=== PATIENT | female | born 1980 | race Caucasian/White ===

== ENCOUNTER → 2019-12-01 15:57 | Outpatient (CLI) | payer BC, SELFPAY ==
--- NOTE | ~2019-12-01 | MM_ITS ---
EXAMINATION: MM screening nichole BI w adi HISTORY: Screening mammogram TECHNIQUE: Craniocaudal and mediolateral oblique 3-D tomosynthesis images were obtained and synthetic 2-D images were generated. CAD analysis was submitted and interpreted. COMPARISON: No prior mammogram is available for comparison at this institution. BREAST PARENCHYMAL COMPOSITION: The breasts are heterogeneously dense, which may obscure small masses . FINDINGS: There is no evidence of suspicious mass, calcification, or architectural distortion to sugg est malignancy in either breast. IMPRESSION: 1. No mammographic evidence of malignancy. 2. Recommend routine screening mammography in one year. BI-RADS Category 1: Negative Reviewed, dictated and finalized at location A.
== END ==
PROVIDERS: PCP Family Medicine; Visit Provider Obstetrics & Gynecology
DX: Z12.31 Encounter for screening mammogram for malignant neoplasm of breast (principal)
CPT/HCPCS: 77063; 77067

== ENCOUNTER 2020-05-29 14:47 | Emergency (ER) | payer BC, SELFPAY ==
[2020-05-29 15:01] VITALS: BP 117/58; PULSE 68; RESP 12; TEMP 37.2; O2SAT 100
--- NOTE | 2020-05-29 15:06 | ED.WOUNDLAC ---
HPI - Wound/Laceration General Chief Complaint: Wound/Laceration Stated Complaint: DOG BITE TO UPPER R THIGH Time Seen by Provider: 05/29/20 15:06 Source: patient Mode of arrival: ambulatory Limitations: no limitations History of Present Illness HPI narrative: Nikki Humphries is a 39 yo female with a PMH of asthma who was bit and hour and a half ago when next door neighbors dog got out of yard (gate not latched). Large Dog bit patient in R upper leg. Is oozing. Has 2 puncture fowler on R upper lateral side of leg. Needs a tetanus booster. Related Data Home Medications Medication Instructions Recorded Confirmed albuterol sulfate 90 mcg/actuation 1 puff INHALATION Q4H PRN 01/21/19 aerosol inhaler fluticasone propion-salmeterol INHALATION 05/29/20 [Wixela Inhub] spironolactone 05/29/20 Allergies Allergy/AdvReac Type Severity Reaction Status Date / Time No Known Allergies Allergy Verified 05/29/20 14:53 Review of Systems Review of Systems: Narrative: CONSTITUTIONAL: Denies fever, chills, sweats. EYES: Denies visual changes, redness, discharge. ENT: Denies rhinorrhea, congestion, sore throat, otalgia. CARDIOVASCULAR: Denies chest pain, palpitations, edema. RESPIRATORY: Denies dyspnea, wheezing, cough GASTROINTESTINAL: Denies abdominal pain, nausea, vomiting, diarrhea. GENITOURINARY: Denies dysuria, hematuria, abnormal discharge SKIN: Denies rash or itching. Dog bite to right lateral thigh NEUROLOGIC: Denies numbness, or focal weakness. PSYCHIATRIC: Denies anxiety or depression. PMFSH Past Medical History Medical History (Updated 05/29/20 @ 15:24 by Kerry Garcia CNP) COVID-19 vaccine series completed No acute medical problems Family History Family History Other No acute medical problems Social History Social History Smoking status: Never smoker Alcohol intake: current Comments At time of signature, I agree with nursing past medical, surgical, social and family history. There is no relevant family history pertinent to the presenting complaint. Exam Narrative: Exam Narrative: GENERAL: This is a well-nourished, well-developed patient, in mild distress. HEAD: normocephalic, atraumatic. EYES: Sclera clear/white. Vision is grossly intact. EARS: External ears normal, Hearing grossly intact. NOSE: External nose normal without nasal discharge, nares without redness, no rhinorrhea. THROAT: Mucous membranes moist, NECK: Neck supple, CARDIOVASCULAR: Regular rate and rhythm without murmurs, gallops, or rubs. RESPIRATORY: Clear to auscultation. Breath sounds equal bilaterally. No wheezes, rales, or rhonchi. GASTROINTESTINAL: Abdomen soft, SKIN: warm, intact with no suspicious lesions or rash, good texture and turgor. Two 1/2 cm puncture fowler on right lateral upper thigh, oozing blood NEURO: awake, alert, and oriented to person, place and time. There were no obvious focal neurologic abnormalities. Steady gait EXTREMITIES: Normal range of motion. BACK: Nontender without deformity Course Course Emergency Course: [facility] right upper lateral thigh-2 puncture fowler, oozing blood, needs tetanus Given tetanus booster, wound cleansed with checked in care and dressed with 4 x 4's and pressure dressing. Hydrocodone for pain, augmentin for infection control Report filled out for state animal control by patient Follow-up with PCP Vital Signs Vital signs: Vital Signs Temperature 98.9 F 05/29/20 15:01 Pulse Rate 68 05/29/20 15:01 Respiratory Rate 12 05/29/20 15:01 Blood Pressure 117/58 L 05/29/20 15:01 Pulse Oximetry 100 05/29/20 15:01 Temperature 98.9 F 05/29/20 15:01 Pulse Rate 68 05/29/20 15:01 Respiratory Rate 12 05/29/20 15:01 Blood Pressure 117/58 L 05/29/20 15:01 Pulse Oximetry 100 05/29/20 15:01 [facility] -
[2020-05-29] MEDS: TETANUS,DIPHTHERIA,AC PERTUSSIS ADULT (0.5 ML) BOOSTRIX IM (15:12)
== END 2020-05-29 15:32 | disposition home or self-care (01) ==
PROVIDERS: Emergency Provider Nurse Practitioner; PCP Family Medicine
DX: S71.131A Puncture wound without foreign body, right thigh, initial encounter (principal); W54.0XXA Bitten by dog, initial encounter; Z23 Encounter for immunization; Z86.16 Personal history of COVID-19; J45.909 Unspecified asthma, uncomplicated
CPT/HCPCS: 90471; 90715; 99213; G0463

== ENCOUNTER → 2020-12-08 15:46 | Outpatient (CLI) | payer BC, SELFPAY ==
--- NOTE | ~2020-12-08 | MM_ITS ---
EXAMINATION: MM screening nichole BI w adi HISTORY: Screening mammogram TECHNIQUE: Craniocaudal and mediolateral oblique 3-D tomosynthesis images were obtained and synthetic 2-D images were generated. CAD analysis was submitted and interpreted. COMPARISON: 12/01/2019 BREAST PARENCHYMAL COMPOSITION: The breasts are heterogeneously dense, which may obscure small masses . FINDINGS: There is no evidence of suspicious mass, calcification, or architectural distortion to sugg est malignancy in either breast. There has been no suspicious interval change. IMPRESSION: 1. No mammographic evidence of malignancy. 2. Recommend routine screening mammography in one year. BI-RADS Category 1: Negative Reviewed, dictated and finalized at location A.
== END ==
PROVIDERS: PCP Family Medicine; Visit Provider Obstetrics & Gynecology
DX: Z12.31 Encounter for screening mammogram for malignant neoplasm of breast (principal)
CPT/HCPCS: 77063; 77067

== ENCOUNTER → 2020-12-08 15:48 | Outpatient (CLI) | payer BC, SELFPAY ==
--- NOTE | ~2020-12-08 | XR_ITS ---
EXAMINATION: XR knee LT min 4V DATE: 12/08/2020 16:49 INDICATION: Left knee pain. TECHNIQUE: 4 views of left knee were obtained. COMPARISON: None. FINDINGS: Bone alignment is normal. No fracture. Joint spaces are well maintained. There is no knee j oint effusion. IMPRESSION: 1. Normal left knee. Reviewed, dictated and finalized at location A. IMPRESSION: 1. Normal left knee.
--- NOTE | ~2020-12-08 | XR_ITS ---
EXAMINATION: XR knee RT min 4V DATE: 12/08/2020 16:50 INDICATION: Right knee pain. TECHNIQUE: 4 views of right knee were obtained. COMPARISON: None. FINDINGS: Bone alignment is normal. No fracture. Joint spaces are well maintained. There is no knee j oint effusion. IMPRESSION: 1. Normal right knee. Reviewed, dictated and finalized at location A. IMPRESSION: 1. Normal right knee.
== END ==
PROVIDERS: PCP Family Medicine; Visit Provider Family Medicine
DX: M25.562 Pain in left knee (principal)
CPT/HCPCS: 73564

== ENCOUNTER → 2021-06-17 15:23 | Outpatient (CLI) | payer BC, SELFPAY ==
--- NOTE | ~2021-06-17 | XR_ITS ---
XR lumbar spine 2-3V DATE: 06/17/2021 16:11 INDICATION: Low back pain TECHNIQUE: AP, lateral, coned lateral lumbosacral views COMPARISON: None FINDINGS: There is mild rotatory thoracolumbar dextroscoliosis. No fracture or dislocation or bone destruction. The lumbar pedicles are intact. There is severe degenerative disc disease at L5-S1. The sacroiliac joints are intact. IMPRESSION: Mild rotatory dextroscoliosis Severe degenerative disc disease at L5-S1 Reviewed, dictated and finalized at location A.
== END ==
PROVIDERS: PCP Family Medicine; Visit Provider Physician Assistant
DX: M54.50 Low back pain, unspecified (principal); M41.86 Other forms of scoliosis, lumbar region; M51.37 Other intervertebral disc degeneration, lumbosacral region
CPT/HCPCS: 72100

== ENCOUNTER 2022-01-28 08:17 | Outpatient (CLI) | payer BC, SELFPAY ==
--- NOTE | ~2022-01-28 | MM_ITS ---
EXAMINATION: MM screening nichole BI w adi HISTORY: Screening mammogram TECHNIQUE: Craniocaudal and mediolateral oblique 3-D tomosynthesis images were obtained and synthetic 2-D images were generated. Bilateral rotated lateral CC views. CAD analysis was submitted and interp reted. COMPARISON: 12/08/2020, 12/01/2019 bilateral screening mammogram examinations BREAST PARENCHYMAL COMPOSITION: The breasts are heterogeneously dense, which may obscure small masses . FINDINGS: There is no evidence of suspicious mass, calcification, or architectural distortion to sugg est malignancy in either breast. There has been no suspicious interval change. IMPRESSION: 1. No mammographic evidence of malignancy. 2. Recommend routine screening mammography in one year. BI-RADS Category 1: Negative Reviewed, dictated and finalized at location A. TIC YARN TWISTER
== END 2022-01-28 08:18 | disposition home or self-care (01) ==
PROVIDERS: PCP Family Medicine; Visit Provider Obstetrics & Gynecology
DX: Z12.31 Encounter for screening mammogram for malignant neoplasm of breast (principal)
CPT/HCPCS: 77063; 77067

== ENCOUNTER 2022-02-16 14:41 | Outpatient (CLI) | payer BC, SELFPAY ==
[2022-02-16 15:19] LABS: Strep Group A RT-PCR NOT DETECTED (Negative)
[2022-02-16 15:28] LABS: Influenza A QL RT-PCR Negative (Negative); Influenza B QL RT-PCR Negative (Negative); SARS-CoV-2 RNA PCR Positive
== END 2022-02-16 14:42 | disposition home or self-care (01) ==
LOC: ANHLAB 14:43
PROVIDERS: PCP Family Medicine; Visit Provider Family Medicine
DX: U07.1 COVID-19 (principal)
CPT/HCPCS: 87636; 87651

== ENCOUNTER 2022-06-11 09:41 | Emergency (ER) | payer BC, SELFPAY ==
--- NOTE | ~2022-06-11 | CT_ITS ---
EXAMINATION: CT pelvis w con DATE: 06/11/2022 12:32 INDICATION: Right perirectal abscess TECHNIQUE: Computed tomography (CT) of the pelvis was performed with 100 CC Omnipaque 350 intravenous contrast. Automated exposure control and iterative reconstruction technique were employed. Exam dose : 340.01 mGy-cm total exam DLP. COMPARISON: None FINDINGS: There is an approximately 1.3 cm wide 2.1 cm AP and 3.4 cm vertical abscess in the posterio r right perianal area, along the deep right gluteal fold. No bowel obstruction, bowel wall thickening or free air is evident. The appendix appears normal. No pelvic mass lesion or adenopathy is detected. 1.5 cm peripherally enhancing right ovarian corpus luteum cyst. There is mild to moderate free fluid in the posterior cul-de-sac, possibly physiologic. The uterus is retroverted. The urinary bladder is unremarkable. Small fat-containing umbilical hernia. Severe degenerative disc disease at L5-S1. Occasional sclerotic lesions of the iliac bones, sacrum and left femoral head are probably bone islan ds. Osteosclerotic metastases cannot be definitively excluded. Recommend clinical correlation and per haps radionuclide bone scan if clinically appropriate.. IMPRESSION: Right perianal/medial gluteal fold abscess Involuting 1.5 cm right ovarian cyst with mild to moderate free fluid in the pelvic cul-de-sac Normal appendix Scattered nonspecific osteosclerotic lesions, possibly bone islands. If there is concern for osteoscl erotic metastatic lesions, consider radionuclide bone scan Reviewed, dictated and finalized at Location A. Reviewed, dictated and finalized at location A. IMPRESSION: Right perianal/medial gluteal fold abscess Involuting 1.5 cm right ovarian cyst with mild to moderate free fluid in the pe lvic cul-de-sac Normal appendix Scattered nonspecific osteosclerotic lesions, possibly bone islands. If there i s concern for osteosclerotic metastatic lesions, consider radionuclide bone sca n
[2022-06-11 09:54] VITALS: BP 131/66; PULSE 88; RESP 20; TEMP 36.6; O2SAT 99
--- NOTE | 2022-06-11 10:04 | ED.GENADULT ---
HPI - General Adult General Chief complaint: Skin/Abscess/Foreign Body Stated complaint: tailbone cyst Time Seen by Provider: 06/11/22 09:53 Source: patient Mode of arrival: ambulatory Limitations: no limitations History of Present Illness HPI narrative: Patient is a 41 y/o female who presents to the ED with c/o rectal pain. Patient reports a history of a pilonidal cyst and abscess. She states she had the cyst removed several years ago at an outside hospital. She states she had issues with recurrence of inflammation along her right buttock frequently, worse with prolonged sitting. She notes that she last had a flare-up a few months ago. She visited her brother in [place], [place] last week and reported having increased pain, tenderness, redness to her R medial buttock since the travel. She c/o nausea associated with the pain, denies any vomiting. She took Ibuprofen at 8am this morning. Denies any fever or drainage. Denies abdominal pain, rectal bleeding, melena. Related Data Home Medications Medication Instructions Recorded Confirmed spironolactone 100 mg tablet 05/29/20 05/18/22 Allergies Allergy/AdvReac Type Severity Reaction Status Date / Time No Known Allergies Allergy Verified 05/18/22 15:46 Review of Systems Review of Systems: CONSTITUTIONAL: Denies fever, chills, or sweats. GASTROINTESTINAL: See HPI. GENITOURINARY: Denies dysuria or hematuria. SKIN: Denies rash or itching. MUSCULOSKELETAL: See HPI. NEUROLOGIC: Denies headache, numbness, or weakness. All systems reviewed & are unremarkable except as noted in HPI and below PMFSH Past Medical History Medical History COVID-19 vaccine series completed No acute medical problems Perforated nasal septum (~2004) Pilonidal cyst with abscess (~2000) removal Screening mammogram, encounter for Surgical History Surgical History History of gynecological procedure mirena iud insertion 2009 / removal 2015 / Paragard iud insertion 06/06/2016 / removal 06/27/2016 Family History Family History Other No acute medical problems Social History Social History Smoking status: Never smoker Alcohol intake: never Substance use: never Substance use type: does not use Lack of Transportation: No Lack of Food: Never True Current Housing: I Have Housing Concerned About Future Housing: No Difficulty Paying Gas/Electric Bills: No Difficulty Paying for Meds: No Currently Unemployed: No Education: Bachelor's Degree Difficulty w/ Childcare or Family Care: No Living arrangements: other Additional living arrangements comments: Occupation/Education: occupation 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 Gender identity (if verbalized by the patient): Female Sexual Orientation (if Verbalized by the Patient): Bisexual Exam Narrative: GENERAL: Well appearing, well-nourished, non-toxic, in no acute distress. HEAD: Normocephalic, atraumatic. NECK: Supple. No adenopathy, no masses. RESPIRATORY: Airway patent, respirations nonlabored. Clear to auscultation bilaterally, no rales, rhonchi, wheezing. CARDIOVASCULAR: Regular rate and rhythm without murmurs, rubs, or gallops. Peripheral pulses 2+ and equal bilaterally. ABDOMINAL: Soft, no significant tenderness to palpation, nondistended, no hepatosplenomegaly. Normoactive BS. MUSCULOSKELETAL: Moves all extremities. Strength/ROM intact without gross deformities. RECTA: Normal rectal tone. External hemorrhoids, no evidence of thrombosis. R medial gluteal cleft with area of erythema, induration, tenderness, central fluctuance. No pustular head. Area several centimeters above anus. Healed scarring from pilonidal removal at superior inte
[2022-06-11 11:04] LABS: Basophils Percent Auto 0.1 % (0.2-1.2); Eosinophils Absolute Auto 0.1 K/mm3 (0-0.3); Eosinophils Percent Auto 0.6 % (0-4.4); Hematocrit 39.1 % (37.0-47.0); Hemoglobin 12.9 g/dL (12.0-15.0); Immature Granulocyte Absolute 0.05 K/mm3 (0.00-0.031); Immature Granulocyte Percent A 0.4 % (0-0.5); Lymphocytes Absolute Auto 1.85 K/mm3 (0.9-3.2); Lymphocytes Percent Auto 13.8 % (18.3-44.2); Mean Corpuscular Hemoglobin 31.6 pg (26-34); Mean Corpuscular Volume 95.8 fl (80-100); Mean Platelet Volume 9.2 fl (7.4-10.4); Monocytes Absolute Auto 1.3 K/mm3 (0.1-0.6); Monocytes Percent Auto 9.4 % (2.6-8.5); Neutrophils Absolute Auto 10.1 K/mm3 (1.3-6.7); Neutrophils Percent Auto 75.7 % (45.5-73.1); Platelet Count Result 263 k/mm3 (150-375); Red Blood Count 4.08 M/mm3 (4.2-5.4); Red Cell Distribution Width 12.2 % (11.5-14.5); White Blood Count 13.4 K/mm3 (4.5-10.0)
[2022-06-11] MEDS: ONDANSETRON INJ 4 MG/2 ML VIAL IV PUSH (11:05)
[2022-06-11] MEDS: MORPHINE SULFATE (*CRX) 4 MG/ML INJ IV PUSH (11:05)
[2022-06-11 11:17] LABS: Alanine Aminotransferase 19 U/L (6-35); Albumin Level 4.9 g/dL (3.5-5.1); Alkaline Phosphatase 48 U/L (38-126); Anion Gap 0 mmol/L (8-16); Aspartate Amino Transferase 19 U/L (14-36); Bilirubin,Total 0.6 mg/dL (0.2-1.3); Blood Urea Nitrogen 11 mg/dL (7-17); Calcium 9.7 mg/dL (8.4-10.2); Carbon Dioxide 31 mmol/L (22-30); Chloride 103 mmol/L (98-107); Estimated CRCL calculation 78 ml/min; Estimated Glomerular Filt Rate > 60; Glucose 99 mg/dL (65-110); Potassium 4.3 mmol/L (3.4-5.0); Sodium 134 mmol/L (137-145)
[2022-06-11] MEDS: MORPHINE SULFATE (*CRX) 2 MG/ML INJ 4 MG (14:27)
[2022-06-11] MEDS: metroNIDAZOLE 250 MG TABLET 500 MG PO (15:26)
[2022-06-11] MEDS: CIPROFLOXACIN 500 MG TAB PO (15:26)
== END 2022-06-11 15:42 | disposition home or self-care (01) ==
PROVIDERS: Emergency Provider Physician Assistant; PCP Family Medicine
DX: K61.0 Anal abscess (principal)
CPT/HCPCS: 10061; 36415; 72193; 80053; 85025; 87070; 87205; 96374; 96375; 99284; A9270; J2270; J2405; Q9967

== ENCOUNTER → 2023-04-30 16:16 | Outpatient (CLI) | payer BC, SELFPAY ==
--- NOTE | ~2023-04-30 | MM_ITS ---
EXAMINATION: MM screening [facility] BI w adi HISTORY: Screening TECHNIQUE: Craniocaudal and mediolateral oblique 3-D tomosynthesis images were obtained and synthetic 2-D images were generated. CAD analysis was submitted and interpreted. COMPARISON: Comparison to multiple prior studies sequentially, with oldest reviewed study dated 11/30. BREAST PARENCHYMAL COMPOSITION: Not dense: There are scattered areas of fibroglandular density. FINDINGS: There is no evidence of suspicious mass, calcification, or architectural distortion to sugg est malignancy in either breast. There has been no suspicious interval change. IMPRESSION: 1. No mammographic evidence of malignancy. 2. Recommend routine screening mammography in one year. BI-RADS Category 1: Negative Reviewed, dictated and finalized at location A. ARCHITECT
== END ==
PROVIDERS: PCP Obstetrics & Gynecology; Visit Provider Obstetrics & Gynecology
DX: Z12.31 Encounter for screening mammogram for malignant neoplasm of breast (principal)
CPT/HCPCS: 77063; 77067

== ENCOUNTER 2024-05-02 15:50 | Outpatient (CLI) | payer BC, SELFPAY | END 2024-05-02 15:51 | disposition home or self-care (01) | LOC: MICIMG 15:51 | PROVIDERS: PCP Family Medicine; Visit Provider Obstetrics & Gynecology | DX: Z12.31 Encounter for screening mammogram for malignant neoplasm of breast (principal) | CPT/HCPCS: 77063; 77067 ==

== ENCOUNTER 2024-10-14 15:14 | Outpatient (CLI) | payer BC, SELFPAY ==
--- NOTE | ~2024-10-14 | XR_ITS ---
XR shoulder RT min 2V 10/14/2024 15:35 Indication: Right shoulder pain Procedure: 4 views right shoulder Comparison: No prior studies for comparison. Findings: There is anatomic alignment. No fracture, subluxation or dislocation. No significant soft t issue abnormality. No foreign bodies. Impression: 1: No acute bone or joint abnormality. Reviewed, dictated and finalized at location A. Impression: 1: No acute bone or joint abnormality.
--- OUTSIDE RECORDS SUMMARY | 2024-10-14 15:33 | XMS_ITS | Encounter Summary ---
Author Organization [employer] Address [address] [place] [address] Care Team Providers Care Private Branch Exchange Operator Name Role Phone Tabby Riggs MD, Jelani Ferraro Primary Care Provider [phone] Encounter Details Date Type Department Care Team (Latest Contact Info) Description 05/07/2006 Outpatient Historical HIS [facility] [place] [address] [place] [address] Acute Upper Respiratory Infections of Unspecified Site (Primary Dx) Social History Tobacco Use Types Packs/Day Years Used Date Smoking Tobacco: Never Assessed Comments Unknown Sex and Gender Information Value Date Recorded Sex Assigned at Not on file 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
--- OUTSIDE RECORDS SUMMARY | 2024-10-14 15:33 | XMS_ITS | Clinical Summary ---
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 Gender Identity Not on file Sexual Orientation Not on file Plan of Treatment Health Maintenance Due Date Last Done Comments HPV VACCINES (1 - 3-dose series) 11/23/1994 DTAP/TDAP/TD VACCINES (1 - Tdap) 11/23/1998 HEPATITIS B VACCINES (1 of 3 - 19+ 3-dose series) 11/04 HPV/Cotest (21-29) 11/23/2000 CERVICAL CANCER SCREENING 11/23/2009 HPV/Cotest (30-65) 11/23/2009 PAP SMEAR 11/23/2009 BREAST CANCER SCREENING 2019 INFLUENZA VACCINE (#1) 2024 Care Teams Tension Machine Operator Relationship Specialty Start Date End Date Jelani Mcnair Jr., MD [address] [facility] [address] [place] [id number] PCP - General 05/07/06
== END 2024-10-14 15:15 | disposition home or self-care (01) ==
PROVIDERS: PCP Family Medicine; Visit Provider Family Medicine
DX: M25.511 Pain in right shoulder (principal)
CPT/HCPCS: 73030